=== PATIENT | male | born 1995 | race Caucasian/White ===

== ENCOUNTER 2023-01-30 14:15 | Outpatient (RCR) | payer OTHER ==
[~2023-01-30 14:15] MED LIST: NO HOME MEDICATIONS; PYRIDIUM200 M1 PO
== END 2023-02-22 | disposition home or self-care (01) ==
LOC: WSPT
DX: S76.012D Strain of muscle, fascia and tendon of left hip, subsequent encounter (principal); S76.811D Strain of other specified muscles, fascia and tendons at thigh level, right thigh, subsequent encounter; M54.16 Radiculopathy, lumbar region